=== PATIENT | female | born 1960 ===

== ENCOUNTER 2021-06-30 05:25 | Day surgery (SDC) | payer OTHER | END 2021-06-30 12:40 | disposition home or self-care (01) | LOC: AMB-ENDOS 05:25 | PROVIDERS: ATTEND Colon & Rectal Surgery | DX: D12.5 Benign neoplasm of sigmoid colon (principal); Z86.010 Personal history of colon polyps; K57.30 Diverticulosis of large intestine without perforation or abscess without bleeding; Z20.822 Contact with and (suspected) exposure to COVID-19 ==

== ENCOUNTER 2023-11-29 06:12 | Day surgery (SDC) | payer OTHER ==
[2023-11-22 17:55] LABS: INR 1.11
[2023-11-29] MEDS ORDERED: DIBUCAINE 30 GM TUBE ONE (10:57)
[2023-11-29] MEDS ORDERED: POVIDONE-IODINE 118 ML BOTT TOP ONE (10:57)
[2023-11-29] MEDS ORDERED: CEFTRIAXONE SODIUM 2,000 MG VIAL ONE (10:58)
[2023-11-29] MEDS ORDERED: LIDOCAINE HCL 1%/EPINEPHRINE 20ML VIAL IJ ONE (10:58)
[2023-11-29] MEDS ORDERED: METRONIDAZOLE/SODIUM CHLORIDE 500 MG/100 ML PIGGYBACK IV ONE (10:58)
[2023-11-29] MEDS ORDERED: BUPIVACAINE HCL/Mpf 0.5% 10ML VIAL ONE (10:58)
[2023-11-29] MEDS ORDERED: HEMOSTATIC MATRIX 1 KIT KIT TOP ONE (11:06)
== END 2023-11-29 15:30 | disposition home or self-care (01) ==
LOC: CIR.AMB 06:12
PROVIDERS: ATTEND Colon & Rectal Surgery
DX: N82.3 Fistula of vagina to large intestine (principal); D12.5 Benign neoplasm of sigmoid colon; Z86.010 Personal history of colon polyps; K57.32 Diverticulitis of large intestine without perforation or abscess without bleeding

== ENCOUNTER 2024-09-25 08:00 | Outpatient (CLI) | payer OTHER ==
[~2024-09-25 08:00] MED LIST: SYNTHROID50 MCG PO; TOPROL XL25 M1 PO
[2024-09-25 09:53] LABS: INR 1.13
== END 2024-09-25 08:15 | disposition home or self-care (01) ==
LOC: LAB 08:00 → CIR.AMB 10:15 → EDSTATUS 12:30
PROVIDERS: ATTEND Colon & Rectal Surgery
DX: K57.32 Diverticulitis of large intestine without perforation or abscess without bleeding (principal); D12.5 Benign neoplasm of sigmoid colon; Z86.0100 Personal history of colon polyps, unspecified; N82.3 Fistula of vagina to large intestine

== ENCOUNTER 2025-01-22 12:25 | Inpatient (IN) | payer OTHER ==
[~2025-01-22] VITALS: Ht 154.9 cm; Wt 95.3 kg
[2025-01-22] MEDS ORDERED: LIPITOR20 MG PO (15:42)
[2025-01-22] MEDS ORDERED: METFORMIN HCL500 M3 PO (15:42)
[2025-01-29] MEDS ORDERED: CEFTRIAXONE SODIUM 2,000 MG VIAL ONE (10:59)
[2025-01-29] MEDS ORDERED: METRONIDAZOLE/SODIUM CHLORIDE 500 MG/100 ML PIGGYBACK IV ONE (11:00)
[2025-01-29] MEDS ORDERED: BUPIVACAINE HCL/MPF 0.5% 30ML VIAL ONE ×2 (12:29→12:34)
[2025-01-29] MEDS ORDERED: LIDOCAINE HCL 1%/EPINEPHRINE 20ML VIAL IJ ONE ×2 (12:30→12:34)
[2025-01-29] MEDS ORDERED: RINGERS SOLUTION,LACTATED 1,000 ML IV SCH (14:30)
[2025-01-29] MEDS ORDERED: ONDANSETRON HCL 2 MG/ML VIAL IV PRN (14:30)
[2025-01-29] MEDS ORDERED: MORPHINE SULFATE 4 MG/ML VIAL IV PRN (14:30)
[2025-01-29] MEDS ORDERED: OxyCODONE HCL 5 MG TABLET (ROXICODONE) PO PRN (14:30)
[2025-01-29] MEDS ORDERED: ENALAPRILAT DIHYDRATE 1.25 MG/ML VIAL IV PRN (15:00)
[2025-01-29] MEDS ORDERED: INSULIN LISPRO 1,000 UNIT/10 ML UNITS SUBCUTANEO PRN (15:15)
[2025-01-29] MEDS ORDERED: DEXTROSE 50 % IN WATER 0.5 G/ML DISP.SYRIN IV PRN (15:15)
[2025-01-29 16:38] LABS: BASO % 0.3 % (0.1-1.2); EOS # 0.51 (0.04-0.54); EOS % 5.1 % (0.7-7.0); LYMPH # 1.87 (1.18-3.74); LYMPH % 18.6 % (19.3-53.1); MEAN PLATELET VOLUME 10.30 fl (9.4-12.4); MONO # 1.04 (0.24-0.82); MONO % 10.3 % (4.7-12.5); NEUT # 6.60 (1.56-6.13); NEUT % 65.4 % (34.0-71.1); RED CELL DISTRIBUTION WIDTH 12.3 % (11.6-14.4)
[2025-01-29] MEDS ORDERED: GABAPENTIN 300 MG CAPSULE PO SCH (17:00)
[2025-01-29] MEDS ORDERED: HYOSCYAMINE SULFATE 0.125 MG TAB.SUBL SL SCH (17:00)
[2025-01-29] MEDS ORDERED: SIMETHICONE 125 MG CAPSULE PO SCH (17:00)
[2025-01-29] MEDS ORDERED: METOCLOPRAMIDE HCL 5 MG/ML VIAL IV SCH (17:00)
[2025-01-29] MEDS ORDERED: ACETAMINOPHEN 500 MG GEL..CAP PO SCH (20:00)
[2025-01-29] MEDS ORDERED: ACETAMINOPHEN 500 MG GEL..CAP PO ONE (20:06)
[2025-01-29] MEDS ORDERED: SIMETHICONE 125 MG CAPSULE PO ONE (20:12)
[2025-01-29] MEDS ORDERED: FAMOTIDINE/PF 20 MG/2 ML VIAL ONE (20:13)
[2025-01-29 20:35] VITALS: BP 119/71; O2SAT 96
[2025-01-29] MEDS ORDERED: FAMOTIDINE/PF 20 MG/2 ML VIAL IV PUSH SCH (21:00)
[2025-01-29] MEDS ORDERED: METOPROLOL SUCCINATE 25 MG TAB.SR.24H PO SCH (21:00)
[2025-01-30 02:16] VITALS: BP 114/57; O2SAT 95
[2025-01-30] MEDS ORDERED: PATIENTS OWN MEDICATION (MEDICAMENTO EN PISO) PO SCH (06:00)
[2025-01-30 06:50] LABS: BASO % 0.4 % (0.1-1.2); EOS # 0.63 (0.04-0.54); EOS % 5.3 % (0.7-7.0); LYMPH # 2.13 (1.18-3.74); LYMPH % 17.8 % (19.3-53.1); MEAN PLATELET VOLUME 10.30 fl (9.4-12.4); MONO # 1.36 (0.24-0.82); MONO % 11.3 % (4.7-12.5); NEUT # 7.79 (1.56-6.13); NEUT % 64.9 % (34.0-71.1); RED CELL DISTRIBUTION WIDTH 12.1 % (11.6-14.4)
[2025-01-30 07:22] LABS: BUN CREA RATIO 15.0 (7.0-25.0); CREATININE SERUM 0.68 mg/dL (0.55-1.02); GFR 87.67; GLUCOSE FASTING 111.0 mg/dL (65-100); OSMOLALITY SERUM 287.0 MOSM/KG (275-295)
[2025-01-30 08:00] VITALS: BP 119/57; O2SAT 96
[2025-01-30] MEDS ORDERED: LACTULOSE 20 G/30 ML BLIST.PACK PO SCH (09:00)
[2025-01-30] MEDS ORDERED: LOSARTAN POTASSIUM 50 MG TABLET PO SCH (09:00)
[2025-01-30 16:00] VITALS: BP 137/79; O2SAT 96
[2025-01-30] MEDS ORDERED: ENOXAPARIN SODIUM 40 MG/0.4 ML SYRINGE SUBCUTANEO SCH (17:00)
[2025-01-30] MEDS ORDERED: ATORVASTATIN CALCIUM 20 MG TABLET PO SCH (17:00)
[2025-01-30 23:30] VITALS: BP 106/64; O2SAT 95
[2025-01-31 06:31] LABS: BUN CREA RATIO 18.0 (7.0-25.0); CREATININE SERUM 0.5 mg/dL (0.55-1.02); GFR 125.02; GLUCOSE FASTING 110.0 mg/dL (65-100); OSMOLALITY SERUM 282.0 MOSM/KG (275-295)
[2025-01-31 06:38] LABS: BASO % 0.5 % (0.1-1.2); EOS # 0.81 (0.04-0.54); EOS % 7.7 % (0.7-7.0); LYMPH # 2.06 (1.18-3.74); LYMPH % 19.7 % (19.3-53.1); MEAN PLATELET VOLUME 10.70 fl (9.4-12.4); MONO # 0.87 (0.24-0.82); MONO % 8.3 % (4.7-12.5); NEUT # 6.65 (1.56-6.13); NEUT % 63.6 % (34.0-71.1); RED CELL DISTRIBUTION WIDTH 12.2 % (11.6-14.4)
[2025-01-31 08:00] VITALS: BP 132/83; O2SAT 95
[2025-01-31] MEDS ORDERED: ENOXAPARIN SODIUM 40 MG/0.4 ML SYRINGE SUBCUTANEO SCH (09:00)
== END 2025-01-31 18:30 | disposition home or self-care (01) | DRG 331 ==
LOC: O/R 01-29 10:00 → SURH 01-29 12:45 → SURG 01-30 08:49
PROVIDERS: Internal Medicine Geriatric Medicine; ADMIT Colon & Rectal Surgery; ATTEND Colon & Rectal Surgery
PROC: 0DQR0ZZ Repair Anal Sphincter, Open Approach (ICD-10-PCS; 2025-01-29)
PROC: 0JQC0ZZ Repair Pelvic Region Subcutaneous Tissue and Fascia, Open Approach (ICD-10-PCS; principal; 2025-01-29 15:15)
DX: N82.3 Fistula of vagina to large intestine (principal); R15.9 Full incontinence of feces; D12.5 Benign neoplasm of sigmoid colon; Z86.0100 Personal history of colon polyps, unspecified; I10 Essential (primary) hypertension; E78.5 Hyperlipidemia, unspecified